=== PATIENT | female | born 1975 | race African-American/Black ===

== ENCOUNTER 2017-12-03 05:09 | Day surgery (SDC) | payer OTHER ==
[2017-11-29 14:02] VITALS: BMI 32.9
[~2017-12-03 05:09] MED LIST: ceFAZolin SODIUM 1 GM VIAL IVPB ONE
[2017-12-03] MEDS ORDERED: IBUPROFEN 600 MG TABLET (FP) PO PRN (10:15)
[2017-12-03] MEDS ORDERED: ACETAMINOPHEN 325 MG TABLET (FP) PO PRN (10:15)
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
[2017-12-03] MEDS ORDERED: MIDAZOLAM HCL 2 MG/2 ML SINGLE DOSE VIAL ONE (10:55)
[2017-12-03] MEDS ORDERED: LIDOCAINE HCL/PF 2% SDV 5ML VIAL ONE (11:03)
[2017-12-03] MEDS ORDERED: DEXAMETHASONE SOD PHOSPHATE 4 MG/1 ML VIAL ONE ×2 (11:03→11:42)
[2017-12-03] MEDS ORDERED: ceFAZolin SODIUM 1 GM VIAL ONE (11:03)
[2017-12-03] MEDS ORDERED: PROPOFOL 20 ML ONE (11:05)
[2017-12-03] MEDS ORDERED: ROCURONIUM BROMIDE 50 MG/5 ML VIAL ONE (11:06)
[2017-12-03] MEDS ORDERED: ceFAZolin SODIUM 1 GM VIAL IVPB ONE (11:14)
[2017-12-03] MEDS ORDERED: NEOSTIGMINE METHYLSULFATE 0.5 MG/ML - 10 ML MDV ONE (11:41)
[2017-12-03] MEDS ORDERED: GLYCOPYRROLATE 0.2 MG/1 ML VIAL ONE (11:42)
[2017-12-03] MEDS ORDERED: hydrALAZINE HCL 20 MG/ML VIAL ONE (12:15)
[2017-12-03] MEDS ORDERED: BUPIVACAINE HCL/PF 0.5% (5MG/ML) 10 ML VIAL ONE (12:27)
[2017-12-03] MEDS ORDERED: ONDANSETRON 4 MG/2 ML VIAL IVPUSH PRN (12:46)
[2017-12-03] MEDS ORDERED: oxyCODONE HCL 5 MG TABLET PO PRN (12:46)
--- NOTE | 2017-12-03 12:53 | OP ---
Operative Note - Note: Operative Date: 12/03/17 Pre-Operative Diagnosis: pelvic pain, abdominal pain, amenorrhea Operation: laparoscopy, lysis of adhesions, hysteroscopy Findings: Uterus with Asherman's syndrome, severe dense adhesions omentum to abdominal wall, right fallopian tube to anterior abdominal wall, left adnexa to anterior abdominal wall Post-Operative Diagnosis: Other Surgeon: Cherelle Goldman Bread Packer: Michael Zamora Anesthesiologist/ROUNDHOUSE WORKER: Norris Singh Anesthesia: General Estimated Blood Loss (mls): 10 Drains, Volume Out (mls): 600 Fluid Volume Replaced (mls): 1,000
[2017-12-03] MEDS ORDERED: LACTATED RINGERS SOLUTION 1,000 ML IV SCH (13:00)
[2017-12-03 18:12] VITALS: BP 122/70; PULSE 86; TEMP 98
--- NOTE | 2017-12-04 09:07 | OP ---
DATE OF OPERATION: 12/02/2017 ATTENDING PHYSICIAN RESPONSIBLE FOR SIGNING REPORT: Cherelle Goldman MD PREOPERATIVE DIAGNOSES: Pelvic pain, amenorrhea. POSTOPERATIVE DIAGNOSES: Pelvic pain, amenorrhea, Asherman syndrome, severe dense adhesions. FINDINGS: Severe dense adhesions from the omentum to the anterior abdominal wall, adhesions from the left fallopian tube to the anterior abdominal wall, and the right adnexa to the anterior abdominal wall and adhesions noted in the intracervical os and Asherman syndrome noted on hysteroscopy. URINE OUTPUT: 600. ESTIMATED BLOOD LOSS: 10. INTRAVENOUS FLUIDS: 1000. SURGEON: Cherelle Goldman MD ASSIST: Michael Zamora MD ANESTHESIOLOGIST: Norris Singh MD ANESTHESIA TYPE: General. INDICATION: Patient is a 42-year-old, 5, para 3 with history of amenorrhea x2 years, failed Provera withdrawal bleed, failed hysterosalpingogram, and generalized abdominal and pelvic pain, who presented for surgical management. She was counseled regarding risks, benefits, alternatives, and complications of procedure including infection; bleeding; damage to surrounding organs such as bowel, bladder, ureters; uterine perforation. She expressed understanding, was brought to the operating room. PROCEDURE: When anesthesia was found to be adequate, patient was prepped and draped in normal sterile fashion, placed in dorsal lithotomy position using Pedrito stirrups. A weighted speculum was placed in the patient's vagina, and the anterior lip of the cervix was grasped using a single-tooth tenaculum. Concurrently the co-surgeon brought attention to the abdominal cavity. A 5-mm incision was made with the knife, and a Veress needle was used to confirm intraabdominal placement using the water-drop test. A 5-mm trocar was placed under direct visualization after the abdomen was insufflated to an operating pressure of 16 mmHg. Hysteroscopy was performed, and a stenotic cervix was noted. We were unable to enter the uterine cavity from the cervix, and no uterine perforation was noted from the laparoscopy. Attempt for dilation and curettage was aborted and the remainder of the procedure was performed laparoscopically. A 5-mm trocar was placed midline above the pelvis, left lower quadrant, and right lower quadrant, all under direct visualization. Severe dense adhesions were noted from the anterior abdominal wall. Attention was brought to the pelvis. The right fallopian tube was freed from adhesions to the anterior abdominal wall using the LigaSure. Good hemostasis was noted. Attention was brought to the left adnexa which the round ligament was adhesed to the anterior abdominal wall which was freed using the LigaSure. Portions of the omentum were taken down from the anterior abdominal wall using the LigaSure, and good hemostasis was noted. All trocars were removed under direct visualization with good hemostasis. All the gas was removed, and the skin was closed using 4-0 Biosyn in interrupted fashion. The patient was awoken from anesthesia and was brought to recovery room in stable condition. Aly [id number] MTDD
== END 2017-12-03 17:30 | disposition home or self-care (01) ==
LOC: JASU-SURG 05:09
PROVIDERS: ATTEND Obstetrics & Gynecology
PROC: 0UN74ZZ Release Bilateral Fallopian Tubes, Percutaneous Endoscopic Approach (ICD-10-PCS; principal; 2017-12-03 10:00)
PROC: 0DNW4ZZ Release Peritoneum, Percutaneous Endoscopic Approach (ICD-10-PCS; 2017-12-03 10:00)
DX: N91.2 Amenorrhea, unspecified (principal); N85.6 Intrauterine synechiae; K66.0 Peritoneal adhesions (postprocedural) (postinfection); R10.2 Pelvic and perineal pain
CPT/HCPCS: 94760

== ENCOUNTER 2019-10-10 21:48 | Emergency (ER) | payer OTHER ==
[2019-10-10 21:57] VITALS: BP 107/70; PULSE 63; TEMP 98; BMI 32.7
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
[2019-10-11] MEDS ORDERED: IBUPROFEN 600 MG TABLET (FP) PO ONE (00:04)
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
== END 2019-10-11 01:12 | disposition home or self-care (01) ==
LOC: JER 21:48
DX: R51 Headache (principal); M54.5 Low back pain; V43.52XA Car driver injured in collision with other type car in traffic accident, initial encounter; Y92.414 Local residential or business street as the place of occurrence of the external cause; Y93.89 Activity, other specified; Y99.8 Other external cause status
CPT/HCPCS: 99281-25

== ENCOUNTER 2022-01-21 19:14 | Emergency (ER) | payer OTHER ==
[2022-01-21 19:34] VITALS: TEMP 98.6; BMI 31.1
[2022-01-21] MEDS ORDERED: SODIUM CHLORIDE 0.9% 500 ML INFUS.BAG IV ONE (19:53)
[2022-01-21 20:32] LABS: BASO % 0.3 % (0-2.0); EOS % 0.6 % (0-4.5); HEMATOCRIT 37.2 % (32.4-45.2); HEMOGLOBIN 12.5 GM/dL (10.7-15.3); LYMPH % 24.9 % (8-40); MCH 30.1 pg (25.7-33.7); MCHC 33.7 g/dl (32.0-36.0); MEAN CELL VOLUME 89.3 fl (80-96); MEAN PLT VOLUME 8.8 fl (7.5-11.1); MONO % 7.8 % (3.8-10.2); NEUT % 66.4 % (42.8-82.8); PLATELET COUNT 254 10^3/uL (134-434); RBC 4.17 M/mm3 (3.60-5.2); RDW 13.4 % (11.6-15.6); WHITE BLOOD COUNT 8.1 K/mm3 (4.0-10.0)
[2022-01-21 20:51] LABS: ALBUMIN 4.3 g/dl (3.4-5.0); CALCIUM 9.2 mg/dL (8.5-10.1)
[2022-01-21 20:52] LABS: BLOOD UREA NITROGEN 13.2 mg/dL (7-18)
[2022-01-21 20:55] LABS: CREATININE 0.8 mg/dL (0.55-1.3)
[2022-01-21 20:56] LABS: BILIRUBIN,TOTAL 0.4 mg/dL (0.2-1); TOT PROT 7.6 g/dl (6.4-8.2)
[2022-01-21 21:23] VITALS: BP 119/68; PULSE 88
== END 2022-01-21 23:19 | disposition home or self-care (01) ==
LOC: JER 19:14
DX: R00.2 Palpitations (principal)
CPT/HCPCS: 36415; 71046-TC-FY; 80053; 84443; 84484; 85025; 93005; 93010; 99285-25

== ENCOUNTER 2022-08-21 21:59 | Emergency (ER) | payer OTHER ==
[2022-08-21 22:32] VITALS: PULSE 104; RESP 20; TEMP 97.7; BMI 31.4
[2022-08-22 00:12] VITALS: BP 141/84
== END 2022-08-22 01:24 | disposition left against medical advice (07) ==
LOC: JER 21:59
DX: R06.02 Shortness of breath (principal)
CPT/HCPCS: 93005; 93010; 99281-25

== ENCOUNTER 2022-09-13 11:14 | Emergency (ER) | payer OTHER ==
[2022-09-13 11:19] VITALS: TEMP 98.3; BMI 31.1
[2022-09-13] MEDS ORDERED: ASPIRIN 325 MG TABLET PO ONE (12:01)
[2022-09-13] MEDS ORDERED: ASPIRIN 325 MG TABLET ONE (12:11)
[2022-09-13 12:44] LABS: BASO % 0.4 % (0-2.0); EOS % 1.1 % (0-4.5); HEMOGLOBIN 12.6 GM/dL (10.7-15.3); LYMPH % 39.2 % (8-40); MCH 29.3 pg (25.7-33.7); MEAN CELL VOLUME 88.6 fl (80-96); MEAN PLT VOLUME 8.9 fl (7.5-11.1); MONO % 9.9 % (3.8-10.2); NEUT % 49.4 % (42.8-82.8); PLATELET COUNT 270 10^3/uL (134-434); RBC 4.29 M/mm3 (3.60-5.2); RDW 13.4 % (11.6-15.6); WHITE BLOOD COUNT 6.3 K/mm3 (4.0-10.0)
[2022-09-13 12:48] LABS: INR 1.15 (0.83-1.09); PROTHROMBIN TIME (PATIENT) 13.3 SEC (9.7-13.0)
[2022-09-13 13:05] LABS: BLOOD UREA NITROGEN 10.6 mg/dL (7-18); CALCIUM 9.2 mg/dL (8.5-10.1)
[2022-09-13 13:08] LABS: CREATININE 0.7 mg/dL (0.55-1.3)
[2022-09-13] MEDS ORDERED: KETOROLAC TROMETHAMINE 30 MG/1 ML VIAL IVPUSH ONE (14:04)
[2022-09-13] MEDS ORDERED: KETOROLAC TROMETHAMINE 30 MG/1 ML VIAL ONE (14:09)
[2022-09-13 14:16] VITALS: BP 107/63; PULSE 60; RESP 16
== END 2022-09-13 14:45 | disposition home or self-care (01) ==
LOC: JER 11:14
PROC: 3E033GC Introduction of Other Therapeutic Substance into Peripheral Vein, Percutaneous Approach (ICD-10-PCS; principal; 2022-09-13)
DX: R07.1 Chest pain on breathing (principal)
CPT/HCPCS: 0241U-QW; 36415; 71046-TC-FY; 80053; 84484; 84703; 85025; 85379; 85610; 93005; 93010; 99285-25

== ENCOUNTER 2023-07-29 11:56 | Emergency (ER) | payer OTHER ==
[2023-07-29 12:02] VITALS: BP 123/78; PULSE 74; RESP 18; TEMP 98.4; BMI 23.3
[2023-07-29] MEDS ORDERED: ACETAMINOPHEN 500 MG TABLET (FP) PO ONE (13:01)
[2023-07-29] MEDS ORDERED: ACETAMINOPHEN 325 MG TABLET (FP) ONE (13:07)
[2023-07-29] MEDS ORDERED: METHOCARBAMOL 500 MG TABLET PO ONE (13:19)
[2023-07-29] MEDS ORDERED: LIDOCAINE 5% TOPICAL PATCH TP ONE (13:19)
[2023-07-29] MEDS ORDERED: KETOROLAC TROMETHAMINE 15 MG/ML VIAL IVPUSH ONE (13:19)
[2023-07-29 13:32] LABS: BASO % 0.8 % (0-2.0); EOS % 0.7 % (0-4.5); HEMATOCRIT 38.4 % (32.4-45.2); HEMOGLOBIN 12.7 GM/dL (10.7-15.3); LYMPH % 29.2 % (8-40); MCH 29.6 pg (25.7-33.7); MCHC 33.2 g/dl (32.0-36.0); MEAN CELL VOLUME 89.3 fl (80-96); MONO % 8.5 % (3.8-10.2); NEUT % 60.8 % (42.8-82.8); PLATELET COUNT 342 10^3/uL (134-434); RDW 13.1 % (11.6-15.6); WHITE BLOOD COUNT 8.1 K/mm3 (4.0-10.0)
[2023-07-29 13:38] LABS: INR 1.03 (0.83-1.09)
[2023-07-29 13:40] LABS: ACTIVATED PTT 34.5 SECONDS (25.2-36.5)
[2023-07-29] MEDS ORDERED: KETOROLAC TROMETHAMINE 15 MG/ML VIAL ONE (13:41)
[2023-07-29] MEDS ORDERED: LIDOCAINE 4% PATCH TP ONE (13:41)
[2023-07-29] MEDS ORDERED: METHOCARBAMOL 500 MG TABLET ONE (13:41)
[2023-07-29 13:52] LABS: POTASSIUM 4.1 mmol/L (3.5-5.1)
[2023-07-29 13:53] LABS: CALCIUM 8.9 mg/dL (8.5-10.1)
[2023-07-29 13:54] LABS: ALBUMIN 4.2 g/dl (3.4-5.0); BLOOD UREA NITROGEN 13.1 mg/dL (7-18)
[2023-07-29 13:57] LABS: CREATININE 0.7 mg/dL (0.55-1.3)
[2023-07-29 13:59] LABS: TOT PROT 7.4 g/dl (6.4-8.2)
== END 2023-07-29 15:43 | disposition home or self-care (01) ==
LOC: JER 11:56
PROC: 3E033NZ Introduction of Analgesics, Hypnotics, Sedatives into Peripheral Vein, Percutaneous Approach (ICD-10-PCS; principal; 2023-07-29)
DX: R06.02 Shortness of breath (principal); S46.012A Strain of muscle(s) and tendon(s) of the rotator cuff of left shoulder, initial encounter; R07.89 Other chest pain; X50.0XXA Overexertion from strenuous movement or load, initial encounter; Y92.9 Unspecified place or not applicable
CPT/HCPCS: 36415; 71046-TC-FY; 80053; 84484; 85025; 85610; 85730; 93005; 93010; 99285-25

== ENCOUNTER 2023-08-17 16:38 | Emergency (ER) | payer OTHER ==
[2023-08-17 17:35] VITALS: PULSE 84; RESP 18; TEMP 97.9; BMI 32.5
[2023-08-17 17:56] LABS: BASO % 0.5 % (0-2.0); EOS % 0.6 % (0-4.5); HEMATOCRIT 40.3 % (32.4-45.2); HEMOGLOBIN 13.1 GM/dL (10.7-15.3); LYMPH % 28.9 % (8-40); MCH 28.9 pg (25.7-33.7); MCHC 32.6 g/dl (32.0-36.0); MEAN CELL VOLUME 88.6 fl (80-96); MONO % 8.1 % (3.8-10.2); NEUT % 61.9 % (42.8-82.8); PLATELET COUNT 291 10^3/uL (134-434); RBC 4.54 M/mm3 (3.60-5.2); RDW 13.2 % (11.6-15.6)
[2023-08-17 18:10] LABS: POTASSIUM 3.6 mmol/L (3.5-5.1)
[2023-08-17 18:12] LABS: ALBUMIN 4.4 g/dl (3.4-5.0); BLOOD UREA NITROGEN 13.7 mg/dL (7-18); CALCIUM 8.8 mg/dL (8.5-10.1)
[2023-08-17 18:15] LABS: CREATININE 0.9 mg/dL (0.55-1.3)
[2023-08-17 18:17] LABS: BILIRUBIN,TOTAL 1.2 mg/dL (0.2-1); TOT PROT 7.7 g/dl (6.4-8.2)
[2023-08-17 18:55] VITALS: BP 126/70
== END 2023-08-17 19:15 | disposition home or self-care (01) ==
LOC: JER 16:38
DX: R00.2 Palpitations (principal); R42 Dizziness and giddiness; R20.2 Paresthesia of skin; R06.02 Shortness of breath; R68.83 Chills (without fever); Z20.822 Contact with and (suspected) exposure to COVID-19
CPT/HCPCS: 0241U-QW; 36415; 71046-TC-FY; 80053; 84484; 85025; 85379; 93005; 93010; 99285-25

== ENCOUNTER 2023-09-13 15:56 | Emergency (ER) | payer OTHER ==
[2023-09-13 16:08] VITALS: BP 125/77; PULSE 79; RESP 18; TEMP 98.3; BMI 32.5
[2023-09-13] MEDS ORDERED: IBUPROFEN 600 MG TABLET (FP) PO ONE ×2 (16:50→17:20)
== END 2023-09-13 19:13 | disposition home or self-care (01) ==
LOC: JERFT 15:56
DX: S60.222A Contusion of left hand, initial encounter (principal); M79.642 Pain in left hand; X58.XXXA Exposure to other specified factors, initial encounter; Y92.219 Unspecified school as the place of occurrence of the external cause
CPT/HCPCS: 73110-TC-LT-FY; 73130-TC-LT-FY; 99283-25

== ENCOUNTER 2023-10-19 09:43 | Emergency (ER) | payer BC, OTHER ==
[2023-10-19 10:40] VITALS: BP 120/81; PULSE 64; RESP 18; TEMP 98.2; BMI 32.5
== END 2023-10-19 12:07 | disposition left against medical advice (07) ==
LOC: JER 09:43
DX: F41.9 Anxiety disorder, unspecified (principal)
CPT/HCPCS: 99281-25

== ENCOUNTER 2023-10-26 14:00 | Inpatient (IN) | payer BC ==
[2023-10-26 14:10] VITALS: BMI 32.5
[2023-10-26 15:17] LABS: EOS % 1.1 % (0-4.5); HEMATOCRIT 36.4 % (32.4-45.2); HEMOGLOBIN 12.3 GM/dL (10.7-15.3); LYMPH % 35.3 % (8-40); MCH 29.6 pg (25.7-33.7); MCHC 33.9 g/dl (32.0-36.0); MEAN CELL VOLUME 87.3 fl (80-96); MEAN PLT VOLUME 9.8 fl (7.5-11.1); MONO % 9.1 % (3.8-10.2); NEUT % 53.5 % (42.8-82.8); PLATELET COUNT 307 10^3/uL (134-434); RBC 4.17 M/mm3 (3.60-5.2); RDW 13.1 % (11.6-15.6); WHITE BLOOD COUNT 6.8 K/mm3 (4.0-10.0)
[2023-10-26 15:32] LABS: ACTIVATED PTT 34.9 SECONDS (25.2-36.5); INR 1.01 (0.83-1.09); PROTHROMBIN TIME (PATIENT) 11.7 SEC (9.7-13.0)
[2023-10-26 15:59] LABS: CHLORIDE 105 mmol/L (98-107); SODIUM 136 mmol/L (136-145)
[2023-10-26 16:01] LABS: CALCIUM 9.5 mg/dL (8.5-10.1)
[2023-10-26 16:02] LABS: ALBUMIN 3.8 g/dl (3.4-5.0); BLOOD UREA NITROGEN 13.2 mg/dL (7-18); CO2 25 mmol/L (21-32); GLUCOSE,RANDOM 97 mg/dL (74-106)
[2023-10-26 16:05] LABS: CREATININE 0.7 mg/dL (0.55-1.3); SGOT/AST 50 U/L (15-37)
[2023-10-26 16:07] LABS: BILIRUBIN,TOTAL 0.5 mg/dL (0.2-1); TOT PROT 7.7 g/dl (6.4-8.2)
[2023-10-26 16:08] LABS: ALK PHOS 53 U/L (45-117); ANION GAP 6 mmol/L (4-13); POTASSIUM 6.7 mmol/L (3.5-5.1); SGPT/ALT 19 U/L (13-61)
[2023-10-26] MEDS ORDERED: ASPIRIN 81 MG CHEWABLE TABLETS ONE ×2 (16:42→19:19)
[2023-10-26] MEDS ORDERED: ACETAMINOPHEN INJECTION 100 ML IVPB ONE (16:42)
[2023-10-26] MEDS: ACETAMINOPHEN 1000 MG/100 ML BAG IVPB ONE (16:56)
[2023-10-26] MEDS: ASPIRIN 81 MG CHEWABLE TABLETS PO ONE ×2 (16:56→19:20)
[2023-10-26 18:30] LABS: POTASSIUM 3.9 mmol/L (3.5-5.1)
[2023-10-26 18:35] LABS: CREATININE 0.6 mg/dL (0.55-1.3)
[2023-10-27] MEDS: POLYETHYLENE GLYCOL (HEALTHYLAX) 3350 17 GM PACKET PO SCH ×2 (02:35→12:53)
[2023-10-27] MEDS ORDERED: ALBUTEROL SO4 2.5/IPRATROPIUM 0.5 INH SOL 3 ML VIAL.NEB. NEB SCH (08:00)
[2023-10-27 08:05] LABS: HEMATOCRIT 36.7 % (32.4-45.2); HEMOGLOBIN 12.2 GM/dL (10.7-15.3); MCHC 33.1 g/dl (32.0-36.0); MEAN CELL VOLUME 87.6 fl (80-96); MEAN PLT VOLUME 9.2 fl (7.5-11.1); PLATELET COUNT 309 10^3/uL (134-434); RBC 4.19 M/mm3 (3.60-5.2); RDW 13.2 % (11.6-15.6)
[2023-10-27 08:50] LABS: CALCIUM 9.1 mg/dL (8.5-10.1)
[2023-10-27 08:51] LABS: ALBUMIN 3.6 g/dl (3.4-5.0); BLOOD UREA NITROGEN 10.5 mg/dL (7-18)
[2023-10-27 08:54] LABS: BILIRUBIN,TOTAL 0.8 mg/dL (0.2-1); CHOLESTEROL 207 mg/dL (50-200); CREATININE 0.7 mg/dL (0.55-1.3); PHOSPHOROUS 3.7 mg/dL (2.5-4.9)
[2023-10-27 08:55] LABS: LDL CHOLESTEROL (ONLY SJRH) 131 mg/dL (5-100)
[2023-10-27 08:56] LABS: HDL CHOLESTEROL 54 mg/dL (40-60); TOT PROT 6.5 g/dl (6.4-8.2)
[2023-10-27] MEDS: ASPIRIN COATED 81 MG TABLET.EC PO SCH (09:36)
[2023-10-27] MEDS: SERTRALINE HCL 25 MG TABLET (FP) PO SCH (09:37)
[2023-10-27] MEDS: ENOXAPARIN NA (PORCINE) 40 MG/0.4 ML DISP.SYRIN SQ SCH (09:37)
[2023-10-27] MEDS: ACETAMINOPHEN 325 MG TABLET (FP) PO PRN (12:53)
[2023-10-27] MEDS ORDERED: MAG HYDROX/AL HYDROX/SIMETH 30 ML UNIT-DOSE CUP PO PRN (13:11)
[2023-10-27] MEDS: SERTRALINE HCL 25 MG TABLET (FP) PO ONE (14:16)
[2023-10-27] MEDS: PANTOPRAZOLE 40 MG TABLET PO SCH (14:17)
[2023-10-27] MEDS: ROSUVASTATIN CA 20 MG TABLET PO ONE (14:17)
[2023-10-27 18:09] VITALS: PULSE 54; TEMP 98.1
[2023-10-27 22:18] VITALS: BP 122/72; RESP 16
[2023-10-27] MEDS ORDERED: methylPREDNISolone NA SUCC 40 MG/1 ML VIAL IVPUSH SCH (23:52)
[2023-10-28] MEDS ORDERED: SERTRALINE HCL 50 MG TABLET (FP) PO SCH (10:00)
[2023-10-28] MEDS ORDERED: ROSUVASTATIN CA 20 MG TABLET PO SCH (22:00)
== END 2023-10-28 00:40 | disposition left against medical advice (07) | DRG 313 ==
LOC: JER 14:00 → JERBED 16:02 → J4S 10-27 01:49
PROVIDERS: ADMIT Internal Medicine
DX: R07.89 Other chest pain (principal); F41.0 Panic disorder [episodic paroxysmal anxiety]; M54.30 Sciatica, unspecified side; R53.1 Weakness; G43.909 Migraine, unspecified, not intractable, without status migrainosus; I10 Essential (primary) hypertension; E78.5 Hyperlipidemia, unspecified
CPT/HCPCS: 0241U-QW; 36415; 70450-TC; 71045-TC-FY; 80048; 80053; 80061; 82962; 83036; 83735; 84100; 84484; 84703; 85025; 85027; 85379; 85610; 85730; 86850; 86900; 86901; 93005; 93010; 99291; J0131

== ENCOUNTER 2023-10-28 02:21 | Emergency (ER) | payer BC ==
[2023-10-28 02:25] VITALS: BP 137/68; PULSE 65; RESP 18; TEMP 98; BMI 32.5
[2023-10-28 03:43] LABS: PHENCYCLIDINE,URINE NEGATIVE (NEGATIVE); URINE BENZODIAZEPINES NEGATIVE (NEGATIVE)
[2023-10-28 03:44] LABS: METHADONE, UR NEGATIVE (NEGATIVE); OPIATES, URI NEGATIVE (NEGATIVE); URINE BARBITURATES NEGATIVE (NEGATIVE)
[2023-10-28 04:16] LABS: COCAINE, UR NEGATIVE (NEGATIVE); URINE AMPHETAMINES NEGATIVE (NEGATIVE)
== END 2023-10-28 03:35 | disposition home or self-care (01) ==
LOC: JER 02:21
DX: R07.89 Other chest pain (principal)
CPT/HCPCS: 80307; 93005; 93010; 99284-25

== ENCOUNTER 2023-10-29 10:35 | Emergency (ER) | payer BC ==
[2023-10-29 11:20] VITALS: RESP 18; TEMP 98; BMI 32.5
[2023-10-29] MEDS ORDERED: ACETAMINOPHEN 325 MG TABLET (FP) ONE (11:55)
[2023-10-29] MEDS: ACETAMINOPHEN 325 MG TABLET (FP) PO ONE (11:56)
[2023-10-29 12:02] LABS: BASO % 0.6 % (0-2.0); HEMATOCRIT 35.7 % (32.4-45.2); HEMOGLOBIN 12.1 GM/dL (10.7-15.3); LYMPH % 34.1 % (8-40); MCH 29.6 pg (25.7-33.7); MEAN CELL VOLUME 86.9 fl (80-96); MONO % 9.4 % (3.8-10.2); NEUT % 54.9 % (42.8-82.8); PLATELET COUNT 293 10^3/uL (134-434); RDW 13.2 % (11.6-15.6); WHITE BLOOD COUNT 6.4 K/mm3 (4.0-10.0)
[2023-10-29 12:16] LABS: POTASSIUM 4.1 mmol/L (3.5-5.1)
[2023-10-29 12:18] LABS: ALBUMIN 3.8 g/dl (3.4-5.0); CALCIUM 9.2 mg/dL (8.5-10.1)
[2023-10-29 12:21] LABS: CREATININE 0.6 mg/dL (0.55-1.3)
[2023-10-29 12:23] LABS: BILIRUBIN,TOTAL 0.7 mg/dL (0.2-1)
[2023-10-29 13:41] VITALS: BP 110/63; PULSE 68
== END 2023-10-29 16:07 | disposition home or self-care (01) ==
LOC: JER 10:35
DX: R07.9 Chest pain, unspecified (principal)
CPT/HCPCS: 36415; 80053; 84484; 84703; 85025; 93005; 93010; 93351; 99285-25

== ENCOUNTER 2023-12-19 13:59 | Emergency (ER) | payer BC ==
[2023-12-19 14:04] VITALS: BP 140/89; PULSE 71; RESP 18; TEMP 98; BMI 32.5
[2023-12-19] MEDS ORDERED: KETOROLAC TROMETHAMINE 15 MG/ML VIAL ONE (14:35)
[2023-12-19] MEDS ORDERED: ACETAMINOPHEN 325 MG TABLET (FP) ONE (14:35)
[2023-12-19] MEDS ORDERED: LIDOCAINE 4% PATCH TP ONE (14:35)
[2023-12-19] MEDS: LIDOCAINE 5% TOPICAL PATCH TP ONE (14:56)
[2023-12-19] MEDS: KETOROLAC TROMETHAMINE 15 MG/ML VIAL IVPUSH ONE (14:57)
[2023-12-19] MEDS: ACETAMINOPHEN 500 MG TABLET (FP) PO ONE (14:57)
[2023-12-19 15:00] LABS: BASO % 0.4 % (0-2.0); EOS % 0.7 % (0-4.5); HEMATOCRIT 40.3 % (32.4-45.2); HEMOGLOBIN 13.5 GM/dL (10.7-15.3); LYMPH % 32.8 % (8-40); MCH 29.3 pg (25.7-33.7); MCHC 33.6 g/dl (32.0-36.0); MEAN CELL VOLUME 87.3 fl (80-96); MEAN PLT VOLUME 9.2 fl (7.5-11.1); MONO % 8.8 % (3.8-10.2); NEUT % 57.3 % (42.8-82.8); PLATELET COUNT 313 10^3/uL (134-434); RBC 4.62 M/mm3 (3.60-5.2); RDW 13.5 % (11.6-15.6); WHITE BLOOD COUNT 8.6 K/mm3 (4.0-10.0)
[2023-12-19 15:18] LABS: POTASSIUM 4.3 mmol/L (3.5-5.1)
[2023-12-19 15:20] LABS: CALCIUM 9.4 mg/dL (8.5-10.1)
[2023-12-19 15:21] LABS: ALBUMIN 4.3 g/dl (3.4-5.0); BLOOD UREA NITROGEN 13.4 mg/dL (7-18)
[2023-12-19 15:24] LABS: CREATININE 0.7 mg/dL (0.55-1.3)
[2023-12-19 15:25] LABS: BILIRUBIN,TOTAL 0.6 mg/dL (0.2-1); TOT PROT 7.8 g/dl (6.4-8.2)
[2023-12-19 16:01] LABS: INR 1.07 (0.83-1.09); PROTHROMBIN TIME (PATIENT) 12.4 SEC (9.7-13.0)
[2023-12-19] MEDS ORDERED: METHOCARBAMOL 750 MG TABLET PO ONE (16:58)
[2023-12-19] MEDS ORDERED: CYCLOBENZAPRINE HCL 5 MG TABLET ONE (17:03)
[2023-12-19] MEDS: CYCLOBENZAPRINE HCL 5 MG TABLET PO ONE (17:05)
[2023-12-19] MEDS ORDERED: LIDOCAINE PATCH REMOVAL MC SCH (22:00)
== END 2023-12-19 17:22 | disposition home or self-care (01) ==
LOC: JER 13:59
PROC: 3E0303Z Introduction of Anti-inflammatory into Peripheral Vein, Open Approach (ICD-10-PCS; principal; 2023-12-19)
DX: R07.89 Other chest pain (principal); G89.29 Other chronic pain; M25.512 Pain in left shoulder; M54.6 Pain in thoracic spine
CPT/HCPCS: 71046-TC-FY; 80053; 84484; 85025; 85610; 85730; 93005; 93010; 99285-25

== ENCOUNTER 2023-12-30 17:43 | Emergency (ER) | payer BC ==
[2023-12-30 17:51] VITALS: BP 142/93; PULSE 100; RESP 18; TEMP 98.4; BMI 31.2
[2023-12-30] MEDS ORDERED: ONDANSETRON 4 MG/2 ML VIAL ONE (18:24)
[2023-12-30] MEDS ORDERED: PANTOPRAZOLE SODIUM 40 MG VIAL ONE (18:24)
[2023-12-30] MEDS: PANTOPRAZOLE SODIUM 40 MG VIAL IVPUSH ONE (18:42)
[2023-12-30] MEDS: ONDANSETRON 4 MG/2 ML VIAL IVPUSH ONE (18:42)
[2023-12-30] MEDS: SODIUM CHLORIDE 0.9% 500 ML INFUS.BAG IV ONE (18:42)
[2023-12-30 18:50] LABS: BASO % 0.3 % (0-2.0); EOS % 0.1 % (0-4.5); HEMATOCRIT 40.1 % (32.4-45.2); HEMOGLOBIN 13.5 GM/dL (10.7-15.3); LYMPH % 14.1 % (8-40); MCH 29.2 pg (25.7-33.7); MCHC 33.7 g/dl (32.0-36.0); MEAN CELL VOLUME 86.6 fl (80-96); MEAN PLT VOLUME 9.3 fl (7.5-11.1); MONO % 4.7 % (3.8-10.2); NEUT % 80.8 % (42.8-82.8); PLATELET COUNT 309 10^3/uL (134-434); RBC 4.63 M/mm3 (3.60-5.2); RDW 13.7 % (11.6-15.6); WHITE BLOOD COUNT 10.8 K/mm3 (4.0-10.0)
[2023-12-30 18:58] LABS: INR 1.06 (0.83-1.09); PROTHROMBIN TIME (PATIENT) 12.3 SEC (9.7-13.0)
[2023-12-30 19:01] LABS: ACTIVATED PTT 30.1 SECONDS (25.2-36.5)
[2023-12-30 19:09] LABS: POTASSIUM 3.7 mmol/L (3.5-5.1)
[2023-12-30 19:13] LABS: ALBUMIN 4.6 g/dl (3.4-5.0); BLOOD UREA NITROGEN 15.1 mg/dL (7-18); CALCIUM 9.8 mg/dL (8.5-10.1)
[2023-12-30 19:16] LABS: CREATININE 0.7 mg/dL (0.55-1.3)
[2023-12-30 19:17] LABS: BILIRUBIN,TOTAL 0.7 mg/dL (0.2-1)
== END 2023-12-30 19:59 | disposition home or self-care (01) ==
LOC: JER 17:43
PROC: 3E033GC Introduction of Other Therapeutic Substance into Peripheral Vein, Percutaneous Approach (ICD-10-PCS; principal; 2023-12-30)
PROC: 3E033GC Introduction of Other Therapeutic Substance into Peripheral Vein, Percutaneous Approach (ICD-10-PCS; 2023-12-30)
DX: K92.0 Hematemesis (principal); R25.1 Tremor, unspecified; R63.0 Anorexia
CPT/HCPCS: 36415; 80053; 83690; 85025; 85610; 85730; 99284-25

== ENCOUNTER 2024-02-17 09:26 | Emergency (ER) | payer BC ==
[2024-02-17 09:33] VITALS: BP 113/77; PULSE 69; RESP 18; TEMP 99; BMI 32.5
[2024-02-17] MEDS ORDERED: ACETAMINOPHEN 500 MG TABLET (FP) ONE (10:13)
[2024-02-17] MEDS ORDERED: LIDOCAINE 4% PATCH TP ONE (10:13)
[2024-02-17] MEDS: LIDOCAINE 4% PATCH TP ONE (10:18)
[2024-02-17] MEDS: ACETAMINOPHEN 500 MG TABLET (FP) PO ONE (10:18)
[2024-02-17 10:32] LABS: HCG,QUALITATIVE URINE Negative
[2024-02-17 10:33] LABS: EPI CELLS 26 /uL (0-25.1); HYALINE CASTS 0 /uL (0-3.1); PH,URINE 6.5 (5.0-8.0); URINE APPEARANCE CLEAR; URINE BACTERIA 5075 /uL (0-1359); URINE BILIRUBIN NEGATIVE (NEGATIVE); URINE COLOR YELLOW; URINE GLUCOSE (UA) NEGATIVE (NEGATIVE); URINE KETONE NEGATIVE (NEGATIVE); URINE LEUK ESTERASE NEGATIVE (NEGATIVE); URINE NITRITE NEGATIVE (NEGATIVE); URINE PROTEIN NEGATIVE (NEGATIVE); URINE RBC 57 /uL (0-23.9); URINE WBC 16 /uL (0-25.8)
[2024-02-17] MEDS ORDERED: LIDOCAINE PATCH REMOVAL MC ONE (22:00)
== END 2024-02-17 11:00 | disposition home or self-care (01) ==
LOC: JER 09:26
DX: M54.50 Low back pain, unspecified (principal)
CPT/HCPCS: 81003; 84703; 87086; 87186; 99283-25

== ENCOUNTER 2024-03-05 15:11 | Emergency (ER) | payer BC ==
[2024-03-05 15:22] VITALS: PULSE 64; RESP 18; BMI 31.1
[2024-03-05] MEDS: ACETAMINOPHEN 1000 MG/100 ML BAG IVPB ONE (17:55)
[2024-03-05] MEDS: FAMOTIDINE 20 MG/50 ML IVPB 20 MG/50 ML MG IVPB ONE (17:55)
[2024-03-05] MEDS: LACTATED RINGERS SOLUTION 1000 ML INFUS.BAG IV ONE (17:55)
[2024-03-05] MEDS: METOCLOPRAMIDE HCL INJECTION 10 MG/2 ML VIAL IVPUSH ONE (17:55)
[2024-03-05] MEDS ORDERED: METHOCARBAMOL 500 MG TABLET ONE (17:55)
[2024-03-05] MEDS: LIDOCAINE 5% TOPICAL PATCH TP ONE (17:55)
[2024-03-05] MEDS ORDERED: METOCLOPRAMIDE HCL INJECTION 10 MG/2 ML VIAL ONE (17:55)
[2024-03-05] MEDS ORDERED: LIDOCAINE 4% PATCH TP ONE (17:56)
[2024-03-05] MEDS ORDERED: FAMOTIDINE 20 MG/50 ML IVPB 20 MG/50 ML MG IVPB ONE (17:56)
[2024-03-05] MEDS ORDERED: ACETAMINOPHEN INJECTION 100 ML IVPB ONE (17:56)
[2024-03-05] MEDS: METHOCARBAMOL 500 MG TABLET PO ONE (18:20)
[2024-03-05 18:26] LABS: BASO % 0.6 % (0-2.0); EOS % 0.8 % (0-4.5); HEMATOCRIT 36.6 % (32.4-45.2); HEMOGLOBIN 12.3 GM/dL (10.7-15.3); LYMPH % 25.9 % (8-40); MCH 29.4 pg (25.7-33.7); MCHC 33.7 g/dl (32.0-36.0); MEAN CELL VOLUME 87.2 fl (80-96); MEAN PLT VOLUME 9.5 fl (7.5-11.1); MONO % 8.3 % (3.8-10.2); NEUT % 64.4 % (42.8-82.8); PLATELET COUNT 314 10^3/uL (134-434); WHITE BLOOD COUNT 9.2 K/mm3 (4.0-10.0)
[2024-03-05 18:33] LABS: INR 0.92 (0.83-1.09); PROTHROMBIN TIME (PATIENT) 10.6 SEC (9.7-13.0)
[2024-03-05 18:36] LABS: ACTIVATED PTT 33.5 SECONDS (25.2-36.5)
[2024-03-05 18:47] LABS: POTASSIUM 4.3 mmol/L (3.5-5.1)
[2024-03-05 18:49] LABS: CALCIUM 9.2 mg/dL (8.5-10.1)
[2024-03-05 18:50] LABS: BLOOD UREA NITROGEN 7.9 mg/dL (7-18)
[2024-03-05 18:53] LABS: CREATININE 0.6 mg/dL (0.55-1.3)
[2024-03-05 18:54] LABS: BILIRUBIN,TOTAL 0.7 mg/dL (0.2-1)
[2024-03-05 20:02] LABS: PH,URINE 5.5 (5.0-8.0); URINE APPEARANCE CLOUDY; URINE BILIRUBIN NEGATIVE (NEGATIVE); URINE COLOR YELLOW; URINE GLUCOSE (UA) NEGATIVE (NEGATIVE); URINE KETONE NEGATIVE (NEGATIVE); URINE LEUK ESTERASE NEGATIVE (NEGATIVE); URINE NITRITE NEGATIVE (NEGATIVE); URINE PROTEIN NEGATIVE (NEGATIVE); URINE UROBILINOGEN 0.2 mg/dL (0.2-1.0)
[2024-03-05 20:23] LABS: HCG,QUALITATIVE URINE NEGATIVE
[2024-03-05] MEDS: LIDOCAINE PATCH REMOVAL MC SCH (22:07)
[2024-03-05 23:57] VITALS: BP 125/77; TEMP 98.3
[2024-03-06] MEDS ORDERED: KETOROLAC TROMETHAMINE 15 MG/ML VIAL ONE (01:15)
[2024-03-06] MEDS: KETOROLAC TROMETHAMINE 15 MG/ML VIAL IVPUSH ONE (01:19)
== END 2024-03-06 03:14 | disposition home or self-care (01) ==
LOC: JER 15:11
PROC: 3E033GC Introduction of Other Therapeutic Substance into Peripheral Vein, Percutaneous Approach (ICD-10-PCS; principal; 2024-03-05)
PROC: 3E033NZ Introduction of Analgesics, Hypnotics, Sedatives into Peripheral Vein, Percutaneous Approach (ICD-10-PCS; 2024-03-05)
PROC: 3E033GC Introduction of Other Therapeutic Substance into Peripheral Vein, Percutaneous Approach (ICD-10-PCS; 2024-03-05)
PROC: 3E0333Z Introduction of Anti-inflammatory into Peripheral Vein, Percutaneous Approach (ICD-10-PCS; 2024-03-06)
DX: M54.50 Low back pain, unspecified (principal); G43.909 Migraine, unspecified, not intractable, without status migrainosus; R11.2 Nausea with vomiting, unspecified; R10.31 Right lower quadrant pain; R10.32 Left lower quadrant pain
CPT/HCPCS: 36415; 72131-TC; 74177-TC; 80053; 81003; 83690; 83735; 84703; 85025; 85610; 85730; 87086; 99285-25; J0131

== ENCOUNTER 2024-06-04 08:40 | Emergency (ER) | payer BC ==
[2024-06-04 08:45] VITALS: RESP 18; BMI 32.5
[2024-06-04] MEDS ORDERED: FAMOTIDINE 20 MG/50 ML IVPB 20 MG/50 ML MG IVPB ONE (10:59)
[2024-06-04] MEDS ORDERED: KETOROLAC TROMETHAMINE 30 MG/1 ML VIAL ONE (10:59)
[2024-06-04 11:20] LABS: BASO % 0.6 % (0-2.0); EOS % 0.4 % (0-4.5); HEMATOCRIT 35.6 % (32.4-45.2); LYMPH % 16.7 % (8-40); MCH 29.9 pg (25.7-33.7); MCHC 33.8 g/dl (32.0-36.0); MEAN CELL VOLUME 88.6 fl (80-96); MONO % 7.6 % (3.8-10.2); NEUT % 74.7 % (42.8-82.8); PLATELET COUNT 246 10^3/uL (134-434); RBC 4.02 M/mm3 (3.60-5.2); RDW 13.3 % (11.6-15.6); WHITE BLOOD COUNT 10.7 K/mm3 (4.0-10.0)
[2024-06-04] MEDS: SODIUM CHLORIDE 0.9% 500 ML INFUS.BAG IV ONE (11:21)
[2024-06-04] MEDS: FAMOTIDINE 20 MG/50 ML IVPB 20 MG/50 ML MG IVPB ONE (11:22)
[2024-06-04] MEDS: KETOROLAC TROMETHAMINE 30 MG/1 ML VIAL IVPUSH ONE (11:22)
[2024-06-04] MEDS ORDERED: MORPHINE SULFATE 2 MG/ML SYRINGE ONE (11:28)
[2024-06-04] MEDS: morphine CARPU-JECT 2 MG/1 ML DISP.SYRIN IVPUSH ONE (11:43)
[2024-06-04 11:47] LABS: ALBUMIN 3.8 g/dl (3.4-5.0); BLOOD UREA NITROGEN 6.9 mg/dL (7-18); CALCIUM 9.3 mg/dL (8.5-10.1); POTASSIUM 3.7 mmol/L (3.5-5.1)
[2024-06-04 11:52] LABS: CREATININE 0.6 mg/dL (0.55-1.3)
[2024-06-04 11:54] LABS: BILIRUBIN,TOTAL 1.5 mg/dL (0.2-1)
[2024-06-04 12:48] LABS: HIV INTERPRETATION NEGATIVE (NEGATIVE)
[2024-06-04] MEDS ORDERED: AMOX TR/POT CLAV 875MG/125MG TABLETS (FP) ONE (16:12)
[2024-06-04] MEDS: AMOX TR/POT CLAV 875MG/125MG TABLETS (FP) PO ONE (16:18)
[2024-06-04 16:27] VITALS: BP 120/63; PULSE 57; TEMP 97.9
== END 2024-06-04 16:47 | disposition home or self-care (01) ==
LOC: JER 08:40
PROC: 3E033GC Introduction of Other Therapeutic Substance into Peripheral Vein, Percutaneous Approach (ICD-10-PCS; principal; 2024-06-04)
PROC: 3E0333Z Introduction of Anti-inflammatory into Peripheral Vein, Percutaneous Approach (ICD-10-PCS; 2024-06-04)
PROC: 3E033NZ Introduction of Analgesics, Hypnotics, Sedatives into Peripheral Vein, Percutaneous Approach (ICD-10-PCS; 2024-06-04)
DX: K57.32 Diverticulitis of large intestine without perforation or abscess without bleeding (principal)
CPT/HCPCS: 36415; 74177-TC; 80053; 83690; 84703; 85025; 86803; 87389; 99285-25